=== PATIENT | female | born 1935 | race Native Hawaiian/Other Pacific Islander ===

== ENCOUNTER 2019-03-22 10:09 | Outpatient (CLI) | payer OTHER ==
[2019-03-22 10:40] LABS: PLATELET COUNT 268 K/uL (152-353)
[2019-03-22 11:46] LABS: POTASSIUM 4.3 mmol/L (3.6-5.2)
== END 2019-03-22 20:00 | disposition home or self-care (01) ==
LOC: LABW 10:09
PROVIDERS: Physician Assistant
DX: G47.09 Other insomnia (principal); F32.89 Other specified depressive episodes; R63.5 Abnormal weight gain; Z79.899 Other long term (current) drug therapy; E55.9 Vitamin D deficiency, unspecified; E53.8 Deficiency of other specified B group vitamins
CPT/HCPCS: 36415; 80053; 80061; 82306; 82607; 84443; 85027

== ENCOUNTER 2019-04-08 11:38 | Outpatient (CLI) | payer OTHER | END 2019-04-08 19:10 | disposition home or self-care (01) | LOC: RESP 11:38 | DX: R00.2 Palpitations (principal) | CPT/HCPCS: 93225 ==

== ENCOUNTER 2020-08-20 07:28 | Emergency (ER) | payer OTHER ==
[~2020-08-20] VITALS: Ht 152.4 cm; Wt 52.2 kg
[2020-08-20 07:41] VITALS: TEMP 98.4
[2020-08-20 09:29] LABS: PLATELET COUNT 191 K/uL (152-353)
[2020-08-20 09:32] LABS: POTASSIUM 3.7 mmol/L (3.6-5.2)
[2020-08-20 10:20] VITALS: BP 183/60
== END 2020-08-20 10:20 | disposition home or self-care (01) ==
LOC: ED 07:28
PROVIDERS: Emergency Medicine Emergency Medical Services
DX: M51.37 Other intervertebral disc degeneration, lumbosacral region (principal); M48.061 Spinal stenosis, lumbar region without neurogenic claudication; R51.9 Headache, unspecified; Z03.818 Encounter for observation for suspected exposure to other biological agents ruled out
CPT/HCPCS: 80048; 80329; 81000; 85027; 87635; 99283; U0003

== ENCOUNTER 2020-09-14 11:11 | Emergency (ER) | payer OTHER ==
[~2020-09-14] VITALS: Ht 152.4 cm; Wt 52.2 kg
[2020-09-14 11:46] VITALS: TEMP 97
[2020-09-14 15:43] LABS: PLATELET COUNT 286 K/uL (152-353)
[2020-09-14 15:53] LABS: POTASSIUM 4.2 mmol/L (3.6-5.2)
[2020-09-14 18:14] VITALS: BP 147/54
== END 2020-09-14 18:17 | disposition short-term general hospital (02) ==
LOC: ED 11:11
PROVIDERS: Family Medicine
DX: S72.091A Other fracture of head and neck of right femur, initial encounter for closed fracture (principal); Z03.818 Encounter for observation for suspected exposure to other biological agents ruled out; W18.39XA Other fall on same level, initial encounter; Y92.098 Other place in other non-institutional residence as the place of occurrence of the external cause
CPT/HCPCS: 36415; 80053; 81000; 85027; 87635; 96365; 96375; 99284; J2270; J2405; J2543; U0003

== ENCOUNTER 2020-09-19 13:50 | Inpatient (IN) | payer OTHER ==
[~2020-09-19] VITALS: Ht 154.9 cm; Wt 56.8 kg
[2020-09-19 17:29] VITALS: BP 171/58; TEMP 98.4; BMI 26.9
[2020-09-19] MEDS ORDERED: HYDR5TAB9 PO (17:53)
[2020-09-19] MEDS ORDERED: ASPI325T40 PO (17:54)
[2020-09-19] MEDS ORDERED: MIRALAX17 GM PO (17:55)
[2020-09-19] MEDS ORDERED: FERROUS SULF325 M1 PO (17:55)
[2020-09-19] MEDS ORDERED: CIPRO250 MG PO (17:56)
[2020-09-19] MEDS ORDERED: LISI10TA11 PO (17:56)
[2020-09-19 20:00] VITALS: BP 171/57; TEMP 99
[2020-09-20 08:00] VITALS: BP 142/44; TEMP 98.9
[2020-09-20] MEDS ORDERED: CELE200C2 PO (09:35)
[2020-09-20] MEDS ORDERED: NEURONTIN 100M100 MG PO ×2 (09:35→09:37)
[2020-09-20 19:44] VITALS: BP 140/71; TEMP 98.7
[2020-09-21 08:00] VITALS: BP 163/47; TEMP 99
[2020-09-21 20:00] VITALS: BP 162/51; TEMP 98.3
[2020-09-22 08:00] VITALS: BP 189/68; TEMP 98.1
[2020-09-22 20:10] VITALS: BP 162/63; TEMP 98.8
[2020-09-23 08:00] VITALS: BP 164/47; TEMP 98.3
[2020-09-23 20:00] VITALS: BP 151/54; TEMP 97.4
[2020-09-24 08:00] VITALS: BP 157/51; TEMP 98.4
[2020-09-24 20:19] VITALS: BP 149/64; TEMP 98.5
[2020-09-25 08:00] VITALS: BP 159/57; TEMP 98.8
[2020-09-25 19:53] VITALS: BP 154/53; TEMP 98
[2020-09-26 05:42] LABS: PLATELET COUNT 275 K/uL (152-353)
[2020-09-26 08:00] VITALS: BP 139/34; TEMP 98.8
[2020-09-26 20:05] VITALS: BP 112/50; TEMP 98.3
[2020-09-27 08:00] VITALS: BP 170/41; TEMP 98
[2020-09-27 18:09] VITALS: BP 140/73; TEMP 98.3; BMI 25.7
[2020-09-27 19:35] VITALS: BP 170/58; TEMP 99.2
[2020-09-28 08:00] VITALS: BP 141/41; TEMP 98.3
== END 2020-09-28 13:20 | disposition home or self-care (01) | DRG 948 ==
LOC: MED/SURG 13:50
PROVIDERS: ADMIT Internal Medicine; ATTEND Internal Medicine
DX: R53.1 Weakness (principal); N39.0 Urinary tract infection, site not specified; R62.7 Adult failure to thrive; R26.89 Other abnormalities of gait and mobility; I10 Essential (primary) hypertension; E61.1 Iron deficiency; M15.8 Other polyosteoarthritis; Z47.1 Aftercare following joint replacement surgery; Z96.641 Presence of right artificial hip joint
CPT/HCPCS: 36415; 85027; 87081

== ENCOUNTER 2020-10-01 13:46 | Outpatient (CLI) | payer OTHER ==
[~2020-10-01 13:46] MED LIST: ASPI325T40 PO; CELE200C2 PO; CIPRO250 MG PO; FERROUS SULF325 M1 PO; HYDR5TAB9 PO; LISI10TA11 PO; MIRALAX17 GM PO; NEURONTIN 100M100 MG PO
== END 2020-10-01 19:25 | disposition home or self-care (01) ==
LOC: MRI 13:46
PROVIDERS: ATTEND Internal Medicine
DX: M48.061 Spinal stenosis, lumbar region without neurogenic claudication (principal)

== ENCOUNTER 2021-01-02 10:13 | Outpatient (CLI) | payer OTHER ==
[2021-01-02 10:31] LABS: PLATELET COUNT 243 K/uL (152-353)
[2021-01-02 10:54] LABS: POTASSIUM 3.9 mmol/L (3.6-5.2)
== END 2021-01-02 21:22 | disposition home or self-care (01) ==
LOC: LABW 10:13
PROVIDERS: ATTEND Internal Medicine
DX: I10 Essential (primary) hypertension (principal); M48.061 Spinal stenosis, lumbar region without neurogenic claudication
CPT/HCPCS: 36415; 80053; 80061; 81000; 82306; 84439; 84443; 85027

== ENCOUNTER 2022-02-19 10:58 | Emergency (ER) | payer OTHER ==
[~2022-02-19] VITALS: Ht 154.9 cm; Wt 56.7 kg
[2022-02-19 11:02] VITALS: TEMP 98.2
[2022-02-19 11:49] LABS: PLATELET COUNT 207 K/uL (152-353)
[2022-02-19 11:55] LABS: POTASSIUM 3.9 mmol/L (3.6-5.2)
[2022-02-19 13:35] VITALS: BP 144/78
== END 2022-02-19 13:37 | disposition home or self-care (01) ==
LOC: ED 10:58
PROVIDERS: Emergency Medicine Emergency Medical Services
DX: B34.9 Viral infection, unspecified (principal); Z20.822 Contact with and (suspected) exposure to COVID-19
CPT/HCPCS: 36415; 80053; 81000; 83735; 84484; 85027; 87502; 87635; 93005; 96360; 99284; U0003

== ENCOUNTER 2022-05-02 14:30 | Observation (INO) | payer OTHER ==
[2022-05-02] VITALS (8 sets, daily range): BP systolic 110–150; BP diastolic 40–87; TEMP 97.3
[~2022-05-02] VITALS: Ht 154.9 cm; Wt 50.0 kg
[2022-05-02 15:30] LABS: PLATELET COUNT 182 K/uL (152-353)
[2022-05-02 15:36] LABS: POTASSIUM 4.3 mmol/L (3.6-5.2)
[2022-05-02 15:44] LABS: PARTIAL THROMBOPLASTIN TIME 20.9 SECONDS (24.5-33.6)
[2022-05-03] VITALS (7 sets, daily range): BP systolic 139–177; BP diastolic 50–69; TEMP 97.6–98.7; Ht 154.9 cm; Wt 50.0 kg
[2022-05-03 04:51] LABS: PLATELET COUNT 220 K/uL (152-353)
[2022-05-03 05:20] LABS: POTASSIUM 3.6 mmol/L (3.6-5.2)
[2022-05-03] MEDS ORDERED: AMLODIPINE BESYLATE PO (11:43)
[2022-05-03] MEDS ORDERED: AMIT10TA21 PO (11:45)
[2022-05-04] VITALS: BP 171/65; TEMP 98
[2022-05-04 04:00] VITALS: BP 165/74; TEMP 97.8
[2022-05-04 08:00] VITALS: BP 155/62; TEMP 97.9
[2022-05-04 12:17] VITALS: BP 174/104; TEMP 98.1
[2022-05-04 16:05] VITALS: BP 150/47; TEMP 97.7
[2022-05-04 20:00] VITALS: BP 154/68; TEMP 98.4
[2022-05-05] VITALS: BP 155/64; TEMP 98.9
[2022-05-05 04:00] VITALS: BP 148/54; TEMP 98.3
[2022-05-05 08:00] VITALS: BP 174/61; TEMP 98.5
== END 2022-05-05 10:40 | disposition home or self-care (01) ==
LOC: ED 14:30 → MED/SURG 21:10
PROVIDERS: ADMIT Emergency Medicine; ATTEND Internal Medicine
DX: G93.49 Other encephalopathy (principal); I10 Essential (primary) hypertension; D53.9 Nutritional anemia, unspecified; M15.8 Other polyosteoarthritis; R41.82 Altered mental status, unspecified; G62.9 Polyneuropathy, unspecified; Z79.899 Other long term (current) drug therapy; Z51.81 Encounter for therapeutic drug level monitoring
CPT/HCPCS: 36415; 51702; 80053; 80143; 80179; 80307; 80320; 81002; 82140; 83880; 84484; 85027; 85610; 85730; 86140; 87635; 93005; 96360; 96361; 96374; 96376; 99220; 99284; G0378; J2060; J2310; U0003